=== PATIENT | male | born 1955 ===

== ENCOUNTER 2016-06-05 07:59 | Day surgery (SDC) | payer OTHER ==
[2016-06-05 08:17] VITALS: BMI 25.0
[2016-06-05] MEDS ORDERED: Propofol 10 mg/ml Inj (20 ML) ONE (09:33)
[2016-06-05] MEDS ORDERED: Midazolam 2 MG/2 ML VIAL ONE (09:33)
[2016-06-05] MEDS ORDERED: Lactated Ringer's 500 ML IV ONE (10:17)
[2016-06-05 10:53] VITALS: TEMP 98.9; O2SAT 100
[2016-06-05 11:26] VITALS: BP 119/66; PULSE 62; RESP 15
== END 2016-06-05 11:45 | disposition home or self-care (01) ==
LOC: C.ENDO 07:59
PROVIDERS: ATTEND Internal Medicine Gastroenterology
DX: Z12.11 Encounter for screening for malignant neoplasm of colon (principal); K57.30 Diverticulosis of large intestine without perforation or abscess without bleeding; D12.0 Benign neoplasm of cecum; D12.4 Benign neoplasm of descending colon
CPT/HCPCS: 45380; 88305; J2250; J2704; J7120